=== PATIENT | male | born 1975 | race Caucasian/White ===

== ENCOUNTER 2018-10-21 14:20 | Emergency (ER) | payer BC, OTHER ==
[~2018-10-21] VITALS: Ht 188 cm; Wt 142.6 kg
[2018-10-21 14:26] VITALS: BP 132/89
--- NOTE | 2018-10-21 15:06 | NUR ---
Patient given discharge instructions and they have confirmed that they understand the instructions. Patient ambulatory with steady gait. Pt left with all personal belongings and d/c paperwork.
== END 2018-10-21 15:22 | disposition home or self-care (01) ==
LOC: ED 15:14
DX: S00.01XA Abrasion of scalp, initial encounter (principal); S09.8XXA Other specified injuries of head, initial encounter; X58.XXXA Exposure to other specified factors, initial encounter; Y93.01 Activity, walking, marching and hiking; Y92.009 Unspecified place in unspecified non-institutional (private) residence as the place of occurrence of the external cause; Y99.8 Other external cause status
CPT/HCPCS: 99283

== ENCOUNTER 2019-04-24 21:46 | Emergency (ER) ==
[~2019-04-24] VITALS: Ht 188 cm; Wt 143.2 kg
--- NOTE | 2019-04-24 22:36 | NUR ---
MEGA Rojas has completed assessment, awaiting orders at this time.
--- NOTE | 2019-04-24 23:15 | NUR ---
BEDSIDE REPORT RECEIVED FROM BEATRICE OCONNELL. PLAN OF CARE DISCUSSED.
[2019-04-24] MEDS ORDERED: CEPHALEXIN 500 MG CAPSULE ONE (23:20)
[2019-04-24 23:28] VITALS: BP_DIAS 77
[2019-04-24] MEDS ORDERED: CEPHALEXIN 500 MG CAPSULE PO ONE (23:30)
[2019-04-25 00:11] VITALS: BP_SYST 118
== END 2019-04-25 00:13 | disposition home or self-care (01) ==
LOC: ED 23:50
DX: L03.114 Cellulitis of left upper limb (principal); L03.012 Cellulitis of left finger
CPT/HCPCS: 10060; 99283